=== PATIENT | female | born 1985 | race Caucasian/White ===

== ENCOUNTER 2024-01-27 07:27 | Day surgery (SDC) | payer OTHER, SELFPAY ==
--- NOTE | 2024-01-23 12:08 | PCM.HP.BLA ---
History and Physical Date of Admission: 01/27/24 HPI: The patient is a 38 year old female presenting for pre-operative visit. She is scheduled for hysteroscopy D&C with polyp and fibroid resection and possible IUD insertion, for menorrhagia with irregular cycles, submucosal uterine fibroid, endometrial polyp and adenomyosis on 01/27/24. Procedure discussed along with risks, benefits and complications. Other alternatives discussed for management. Consent form signed? Yes. PAST MEDICAL HISTORY PAST MEDICAL HISTORY Diagnosis Date ? NEGATIVE MEDICAL HISTORY PAST SURGICAL HISTORY PAST SURGICAL HISTORY Procedure Laterality Date ? SECTION 2012 CURRENT MEDICATIONS Current Outpatient Medications Medication Sig Dispense Refill ? cyanocobalamin (VITAMIN B-12) 500 mcg tablet Take 500 mcg by mouth. ? ketoconazole (NIZORAL) 2 % shampoo Apply to affected area. ? omeprazole (PRILOSEC) 40 mg capsule Take 40 mg by mouth once daily. ? ferrous sulfate 325 mg (65 mg iron) tablet TAKE 1 TABLET BY MOUTH ONCE DAILY WITH breakfast. DO NOT CRUSH, CHEW, OR SPLIT (Patient not taking: Reported on 01/23/2024) ? SETLAKIN 0.15 mg-30 mcg (91) per tab, 3 month pack Take 1 tablet by mouth once daily. (Patient not taking: Reported on 01/23/2024) No current facility-administered medications for this visit. ALLERGIES: Patient has no known allergies. PERSONAL HISTORY: SOCIAL HISTORY Social History Tobacco Use ? Smoking status: Former Types: Cigarettes Quit date: 08/11/2011 Years since quittin.4 ? Smokeless tobacco: Never Vaping Use ? Vaping Use: Never used Substance Use Topics ? Alcohol use: No ? Drug use: No FAMILY HISTORY: FAMILY HISTORY FAMILY HISTORY Problem Relation Age of Onset ? other (leukemia [Other]) Maternal Grandfather ? other (diabetes [Other]) Maternal Grandfather ? other (kidney stones [Other]) Mother ? other (diverticulitis [Other]) Mother ? other (PPM [Other]) Paternal Grandmother ? other (gout [Other]) Father ? other (pancreatic cancer [Other]) Other paternal side REVIEW OF SYMPTOMS: GENERAL: denies fevers or chills ENDOCRINOLOGY: has not been on steroids Cardiology : denies palpitations or chest pain Respiratory: denies SOB or cough Hematology: denies history of prolonged bleeding or easy bruising or VTE Allergy: Denies history of personal or family history of allergy to anesthesia PHYSICAL EXAMINATION: VITALS: Blood pressure 104/70, pulse 86, height 157.5 cm (5' 2), weight 75.3 kg (166 lb), last menstrual period 01/15/2024, SpO2 98%. GENERAL: The patient is well nourished, well hydrated in no acute distress. , The patient is oriented to time, place, and person. NECK: Supple. No lynphadenopathy, normal thyroid, no thyromegaly. LUNGS: Clear to auscultation bilaterally. no wheezes, rhonchi or rales HEART: Regular rate and rhythm, Normal heart sounds, and No murmurs or gallops PELVIC US 01/03/24: Indication Evaluation of abnormal uterine bleeding: menorrhagia with irregular cycle Impression The uterus is anteverted and measures 92 mm x 54 mm x 58 mm. A anteverted uterus seen that measures 92 mm x 54 mm x 58 mm. The myometrium is heterogeneous and is suggestive of adenomyosis. The endometrial thickness is 3.6 mm. There is endometrial fluid in the fundus with debris. There is an anterior midline, intramural fibroid impinging on the endometrium vs submucosal fibroid that measures 38 mm x 30 mm x 21 mm. There is a right lateral anterior wall endometrial polyp that measures 6 mm x 8 mm x 6 mm. The right ovary measures 19 mm x 8 mm x 10 mm. The left ovary measures 25 mm x 16 mm x 19 mm. There is no free fluid visualized. IMPRESSION: Menorrhagia with irregular cycles, submucosal uterine fibroid, endometrial polyp and adenomyosis PLAN: The risks/benefits/alternatives and personal involved for the planned hysteroscopy D&C with polyp and fibroid resection and possible IUD insertion were reviewed with the patient. Her questions were answered to her satisfaction and she desires to proceed. Consent was signed. I reviewed with her postop instructions and expectations. I have reviewed and updated past medical and surgical history, medications and allergies Assessment & Plan Assessment/Plan (1) Submucous uterine fibroid: (2) Endometrial polyp: (3) Menorrhagia with irregular cycle: (4) Adenomyosis:
--- NOTE | 2024-01-27 | EMB_PTH ---
PATIENT: QUANG BURGESS LOC: [facility] [place] U#:[id number] AGE/SX: 38/F ROOM: RE01/27/[address]: Dr. Yaneth Reynoso MD : [id number] BED: DIS: 01/27/2024 SPEC #: [id number] RECD: 01/27/24 11:59 STATUS: FITO LANDAVERDE #: [id number] TABITHA: 01/27/24 00:[address]: Yaneth Reynoso DEPT: SURGICAL PATHOLOGY RECD BY: Ayden Joyce ENTERED: 01/27/24 13:14 SP TYPE: ENDOM BX/C CRISTOBAL DR: Isela Haney, KARINA-C Tissues: Endometrium, NOS Procedures: Surgery Specimen Level IV HEADER OPERATION: Hysteroscopy, D&C, Symphion, and IUD insertion PRE-OP DIAGNOSIS: Submucous uterine fibroid, endometrial polyp, menorrhagia with irregular cycle, adenomyosis TISSUE SUBMITTED: Endometrial curettings, polyp and fibroid MICROSCOPIC DIAGNOSIS Endometrial curettings polyp and fibroid: Fragments of dyssynchronous endometrial tissue consisting of weakly proliferative and early secretory endometrium. Fragments of leiomyoma with focal area of hyalinization. Fragments of benign endocervical mucosa. See comment. Albina 01/30/2024 COMMENT This specimen predominantly consists of fragments of leiomyoma. MICROSCOPIC DESCRIPTION Slides are reviewed. GROSS DESCRIPTION Received in fixative is one container labeled with the patient's name and designated Endometrial curettings, polyp and fibroid. The specimen consists of multiple irregular fragments of etienne indurated tissue that in aggregate measure 6.0 x 4.0 x 1.5 cm. The specimen is totally submitted in twelve cassettes. Albina 01/27/2024 TC:5 CPT:21189
[2024-01-27 07:59] LABS: Internal QC Validated? YES +Cl - CLEAR BKGD; Pregnancy, Urine Negative Negative
[2024-01-27] MEDS: Lactated Ringers 1,000 ML 15 ML IV (08:05)
[2024-01-27] MEDS: Iron Sucrose Complex 200 MG in 0.9% Normal Saline (100mL Bag) 100 ML 220 MG IV (08:05)
[2024-01-27] MEDS: Acetaminophen 500 MG Tablet 1000 MG PO (08:06)
[2024-01-27] MEDS: Ketorolac 30 MG/ML Syringe IV (08:06)
--- NOTE | 2024-01-27 08:11 | PCM.PRE.AN2 ---
ASA Classification* ASA Classification ASA Classification: 2 Assessment & Plan Anesthesia* Anesthesia Assessment Anesthesia Assessment: Discussed sedation and/or anesthesia options, risks, benefits, and alternatives with patient/parents/legal guardian/POA. Questions invited. The patient/parents/legal guardian/POA seems to understand and agrees to proceed with anesthesia plan. Reviewed the physical assessment, medical history, allergy history and patient home medications list prior to surgery/procedure/anesthetic and documented any changes. Performed airway and anesthesia risk assessments. Anesthesia Type Anesthesia Type: General (see written pre anesthesia record for full assessment) Anesthesia Focused Assessment* Airway Assessment Mouth opens: >3 cm Mallampati Score: II Focused Labs Anesthesia Preop lab: CBC CHEMISTRY COAG Urine Test Negative Negative 01/27/24 07:40 Pre-Assessment Diagnosis/Proposed Procedure Planned Operative Procedure(s): HYSTEROSCOPY D&C Anesthesia History Anesthesia History - home health provider: Anesthesia History - home health provider Hx Hospitalization No 01/23/24 08:42 Any Problems With Anesthesia No 01/23/24 08:42 Cholinesterase deficiency No 01/23/24 08:42 You/Your Family Experience No 01/23/24 08:42 fever (hyperthermia) with Relationship Recent Exposure to Contagious No 01/27/24 08:06 Disease Does patient have nerve No 01/23/24 08:42 stimulator Patient instructed to have device shut off --Does patient have Pacemaker No 01/27/24 08:06 or ICD? When Was Last Pacemaker Check QUESTION #4 FULL TEXT: You/Your Family Experience fever (hyperthermia) with Anesthesia Last Oral Intake Last Oral intake: Last Oral Intake NPO since 00:00 01/27/24 08:06 Meds taken in AM with sips of No 01/27/24 08:06 water? Meds patient instructed to take am of surgery PONV PONV - home health provider: PONV - home health provider Female Yes 01/23/24 08:42 HX of Motion Sickness Yes 01/23/24 08:42 HX of N/V After Surgery No 01/23/24 08:42 Non-Smoker Yes 01/23/24 08:42 Duration of Surgery greater No 01/23/24 08:42 than 60 minutes Number of Risk Factors 3 01/23/24 08:42 PONV Score Moderate Risk 01/23/24 08:42 Height & Weight Height & Weight: Anesthesia: Height & Weight Weight: 75.296 kg 01/26/24 08:52 Respiratory Assessment Respiratory Assessment - home health provider: Respiratory Tract Infection Hx - home health provider Hx Respiratory Tract Infection No 01/23/24 08:42 STOP Sleep Apnea STOP Sleep Apnea - home health provider: STOP Sleep Apnea - home health provider Hx Hypertension No 01/23/24 08:42 Hx Sleep Apnea No 01/23/24 08:42 CPAP BIPAP Do you snore loudly (louder No 01/23/24 08:42 than talking or can be heard Do you often feel tired/ No 01/23/24 08:42 fatigued/ sleepy during daytime? Has anyone observed you stop No 01/23/24 08:42 breathing during sleep? STOP Results Negative 01/23/24 08:42 QUESTION #5 FULL TEXT : Do you snore loudly (louder than talking or can be heard through closed doors)? 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 Specify any problems Hx of Preganancy in last 3 No 01/23/24 08:42 Months Nurse Filling Out Transfusion SFRANTZ 01/23/24 08:42 & Questions: Date: 01/23/24 01/23/24 08:42 Time: 08:45 01/23/24 08:42 Patient unable to answer at this time (ie. confused, unrespo /Reproduction History /Reproductive History - home health provider: /Reproductive Hx- home health provider Hx Now No 01/23/24 08:42 Gestational Age (in weeks): EDC: Hx Hx Para Hx Section SAB No 01/23/24 08:42 Active Medications Active Medications: Current Medications Generic Name Dose Route Start Last Admin Trade Name Dieter PRN Reason Stop Dose Admin Acetaminophen 1,000 mg 01/27/24 09:45 01/27/24 08:06 Acetaminophen 500 Mg Tablet PO 1,000 mg X1 GUSTAVO Administration Iron Sucrose 200 mg/ Sodium 110 mls @ 220 mls/hr 01/27/24 09:45 01/27/24 08:05 Chloride IV 01/27/24 10:14 220 mls/hr X1 ONE Administration Lactated Ringer's 1,000 mls @ 15 mls/hr 01/27/24 07:45 01/27/24 08:05 IV 15 mls/hr .Q48H GUSTAVO Administration Ketorolac Tromethamine 30 mg 01/27/24 09:45 01/27/24 08:06 Ketorolac 30 Mg/Ml Syringe IV 01/27/24 09:46 30 mg X1 ONE Administration PFSH Medical History Wears glasses Alcohol use Low iron Heartburn Non-smoker Home Medications ?Medication ?Instructions ?Recorded ?Last Taken ?Type multivitamin (Daily Multi-Vitamin 1 tab PO DAILY 01/23/24 01/26/24 History tablet) omeprazole magnesium 20 mg 20 mg PO DAILY 01/23/24 01/26/24 History tablet,delayed release (Prilosec OTC) ferrous sulfate 325 mg (65 mg 325 mg PO 01/27/24 01/26/24 History iron) tablet (FeroSul) Allergy/AdvReac Type Severity Reaction Status Date / Time No Known Allergies Allergy Verified 01/27/24 08:04 Surgical History Hx of section Social History Smoking Status: Never smoker Review of Systems (Anesthesia) ROS Narrative System reviewed and no additional complaints, except as documented.
--- NOTE | 2024-01-27 09:18 | PCM.OPRPT ---
Problems Associated Problem List Diagnoses (1) Adenomyosis: (2) Menorrhagia with irregular cycle: (3) Endometrial polyp: (4) Submucous uterine fibroid: Report of Operation Date of Procedure: 01/27/24 Pre-Operative Diagnosis: Adenomyosis, submucosal uterine fibroid, menorrhagia, fe def anemia due to chronic blood loss Post-Operative Diagnosis: same Surgery/Procedure Performed:: Hysteroscopy with dilation and curettage, resection of uterine polyp and fibroid and insertion of Liletta IUD Description of Surgical Findings:: Small intracavitary endometrial polyp near the fundus, large intracavitary fibroid. Normal cervix and vagina. Surgeon: Yaneth Reynoso high density finishing operator: None Type of Anesthesia: MAC/Supplemental/Local Anesthesiologist: Mary Foster Special Medications: dilute vasopressin paracervically Specimen's removed: endometrial curettings, submucosal fibroid and endometrial polyp Drains: none Estimated Blood Loss (mL): 10 Fluids Replaced: 900 Description of Procedure: The patient was taken to the OR where she was prepped and draped in dorsal lithotomy position. The weighted speculum was placed in the vagina and the anterior lip of the cervix was grasped with a single-tooth tenaculum. A paracervical block was administered with 5 units of vasopressin diluted in normal saline.. The cervix was dilated serially with Hegar dilators. The SYmphion hysteroscope was placed into the uterine cavity and the above findings were noted. Bilateral tubal ostia were identified. The hysteroscope was removed. The Symphion resection device was readied and inserted. The device was used to resect and remove the endometrial polyp, the fibroid and endometrial curettings. The fibroid was rather large and mostly intracavitary. It was approximately 3.5 cm in diameter at the end of the resection the cavity was devoid of any abnormalities and was normal shape and size. No residual fibroid was noted.. The Liletta IUD was readied and inserted in the usual sterile fashion. The strings were cut to 2 cm. The instruments were removed from the vagina. The specimen was handed off and sent to pathology. All sponge and needle counts were correct. Vaginal sweep was performed by me. The patient was awakened and taken to the recovery room in stable condition. Calculated fluid deficit was 950 cc of normal saline Grafts/Implants Used: Liletta IUD Procedure Start Time: :25 Procedure Stop Time: :46 Complications none Admit VTE Documentation VTE Present on Admission: No VTE Mechan Device Prophylaxis: SCD's VTE Pharm Prophylaxis ordered?: No Reason prophylaxis not ordered:: Procedure Not Indicated
[2024-01-27] MEDS: Vasopressin 20 UNITS/ML Vial (09:28)
[2024-01-27] MEDS: Levonorgestrel IUD (Liletta) 1 EACH INTRA-UTER (09:31)
--- NOTE | 2024-01-27 09:51 | DCINST_ITS ---
Discharge Instructions Diet Discharge Diet: No restrictions Activity Discharge Activity: May Shower Return to work on:: 01/30/24 May resume sexual activity in: 2 weeks Lifting Restrictions: none Dressing / Incision Call your doctor if your incision/area has: Sudden Increased Bleeding and Foul Smelling Discharge Call your doctor if you observe: Fever of 101 or Higher and Using more than 1 pad per hour (for 2 hrs in a row) Follow Up Care Please Follow Up With: Yaneth Reynoso MD When: You do not need a follow up. Call [phone] or send a [employer] message to make an appointment or with any concerns. Test Results: Test results from this visit will be discussed in further detail at your follow- up appointment, if applicable. Discharge Plan Admission Primary Reason for Your Visit: D&C with polyp and fibroid resection Attending Provider: Yaneth Reynoso Primary Care Provider: Isela Haney Instructions Print Language: Vietnamese Discharge Orders/Prescriptions Prescriptions: No Action multivitamin [Daily Multi-Vitamin] Tablet 1 tab PO DAILY omeprazole magnesium [Prilosec OTC] 20 mg tablet,delayed release (DR/EC) 20 mg PO DAILY ferrous sulfate [FeroSul] 325 mg (65 mg iron) tablet 325 mg PO Disposition Disposition (needs filled in before D/C Order can be placed): Home, Self Care
[2024-01-27 09:55] VITALS: BP 101/67; BP 95/60; PULSE 84; RESP 16; TEMP 37; O2SAT 95
--- NOTE | 2024-01-27 09:55 | PCM.POST.ANE ---
Anesthesia: Postop Eval I Current Vital Signs Temperature: 98.2 F Pulse Rate: 91 Blood Pressure: 95/60 Respiratory Rate: 18 Pulse Ox: 95 Oxygen Delivery Method: Simple Mask Oxygen Flow Rate (L/min): 10 Assessment Airway patent: Yes Spontaneous unlabored respirations: Yes Mental status: Calm and Asleep nausea: No Vomiting: No Anesthesia Complication: No Fluid Hydration Crystalloid volume administer (ml): 600 Total IV fluid infused: 600 Progress Note Anesthesia document: Postop Eval 1 completed: Yes
[2024-01-27 09:56] VITALS: BP 95/60; PULSE 91; RESP 18; TEMP 36.8; O2SAT 95
[2024-01-27 10:00] VITALS: BP 101/67; BP 94/57; PULSE 86; RESP 16; O2SAT 94
[2024-01-27 10:05] VITALS: BP 101/67; BP 98/61; PULSE 85; RESP 16; O2SAT 93
[2024-01-27 10:15] VITALS: BP 101/67; BP 96/65; PULSE 80; RESP 16; TEMP 36.1; O2SAT 93
--- NOTE | 2024-01-27 10:29 | POSTOPAN2_ITS ---
Anesthesia Postop Eval I Sum Postop Eval Completion status Anesthesia document: Postop Eval 1 completed: Yes Anesthesia Postop Eval I Summary Anesthesia Postop Eval I Summary: Anesthesia Postop Eval I: Assessment Summary Airway patent Yes 01/27/24 09:56 CHANNEL BUSINESS MANAGER.CSIR Spontaneous unlabored Yes 01/27/24 09:56 CHANNEL BUSINESS MANAGER.CSIR respirations Mental status Calm,Asleep 01/27/24 09:56 CHANNEL BUSINESS MANAGER.CSIR nausea No 01/27/24 09:56 CHANNEL BUSINESS MANAGER.CSIR Vomiting No 01/27/24 09:56 CHANNEL BUSINESS MANAGER.CSIR Anesthesia Postop Eval I: Fluid Summary Crystalloid volume administer 600 01/27/24 09:56 CHANNEL BUSINESS MANAGER.CSIR (ml) Colloids volume administered ( ml) Blood Product volume administered (ml) Total IV fluid infused 600 01/27/24 09:56 CHANNEL BUSINESS MANAGER.CSIR Anesthesia Postop Eval I: Summary Notes Anesthesia Complication No 01/27/24 09:56 CHANNEL BUSINESS MANAGER.CSIR Anesthesia Complication Comment: Post-operative progress note Anesthesia: Postop Eval II Evaluation Mental status: Awake Pain Level: 0 nausea: No Vomiting: No
--- NOTE | 2024-01-27 10:29 | PCM.POSTANE2 ---
Anesthesia Postop Eval I Sum Postop Eval Completion status Anesthesia document: Postop Eval 1 completed: Yes Anesthesia Postop Eval I Summary Anesthesia Postop Eval I Summary: Anesthesia Postop Eval I: Assessment Summary Airway patent Yes 01/27/24 09:56 ORTHOTIC PRACTITIONER.CSIR Spontaneous unlabored Yes 01/27/24 09:56 ORTHOTIC PRACTITIONER.CSIR respirations Mental status Calm,Asleep 01/27/24 09:56 ORTHOTIC PRACTITIONER.CSIR nausea No 01/27/24 09:56 ORTHOTIC PRACTITIONER.CSIR Vomiting No 01/27/24 09:56 ORTHOTIC PRACTITIONER.CSIR Anesthesia Postop Eval I: Fluid Summary Crystalloid volume administer 600 01/27/24 09:56 ORTHOTIC PRACTITIONER.CSIR (ml) Colloids volume administered ( ml) Blood Product volume administered (ml) Total IV fluid infused 600 01/27/24 09:56 ORTHOTIC PRACTITIONER.CSIR Anesthesia Postop Eval I: Summary Notes Anesthesia Complication No 01/27/24 09:56 ORTHOTIC PRACTITIONER.CSIR Anesthesia Complication Comment: Post-operative progress note Anesthesia: Postop Eval II Evaluation Mental status: Awake Pain Level: 0 nausea: No Vomiting: No
[2024-01-27 10:43] VITALS: BP 101/67
== END 2024-01-27 10:50 | disposition home or self-care (01) ==
LOC: SDC 07:28 → AC 07:30
PROVIDERS: Anesthesiology; PCP Nurse Practitioner Family; Referring Provider Obstetrics & Gynecology; Visit Provider Obstetrics & Gynecology
PROC: 0UB98ZZ Excision of Uterus, Via Natural or Artificial Opening Endoscopic (ICD-10-PCS; CPT 58558; principal; 2024-01-27 08:45)
DX: D25.0 Submucous leiomyoma of uterus (principal); N92.1 Excessive and frequent menstruation with irregular cycle; D50.0 Iron deficiency anemia secondary to blood loss (chronic); Z87.891 Personal history of nicotine dependence; N84.0 Polyp of corpus uteri; N80.03 Adenomyosis of the uterus; Z30.430 Encounter for insertion of intrauterine contraceptive device
CPT/HCPCS: 58558; 58300; 00952; 81025; 88305; J1756; J7120; J2405